=== PATIENT | female | born 1955 | race Caucasian/White ===

== ENCOUNTER 2020-01-08 11:48 | Day surgery (SDC) | payer MEDICARE ==
[~2020-01-08] VITALS: Ht 160 cm; Wt 63.2 kg
[~2020-01-08 11:48] MED LIST: CLON.1 PO; FISH OIL; FLAX SEED OIL; MAGNESIUM; OMEP20ER PO; RED RICE YEAST; VITAMIN C; VITAMIN D; WARF5 PO; WARF7.5 PO
--- NOTE | 2020-01-08 13:21 | NUR ---
01/08/20 1321 ADENIKE VENEGAS History, Chart, Medications and Allergies reviewed before start of procedure. 3-LEAD EKG REVIEWED WITH PHYSICIAN PRIOR TO START OF PROCEDURE. O2 VIA N/C INTACT THROUGHOUT SEDATION/PROCEDURE. MONITOR INTACT WITH CONTINUOUS PULSE OXIMETRY AND INTERMITTENT BP. PATIENT DETERMINED TO BE ASA APPROPRIATE FOR PROPOFOL SEDATION PRIOR TO START OF PROCEDURE BY DR. MARTINI.
--- NOTE | 2020-01-08 14:07 | NUR ---
WRITTEN AND VERBAL D/C INSTRUCTIONS GIVEN TO PT WITH STATED UNDERSTANDING.
== END 2020-01-08 22:49 | disposition home or self-care (01) ==
LOC: ORSCMMR 11:48 → ORD 13:15 → ORSCMMR 22:49
PROVIDERS: Internal Medicine Gastroenterology
PROC: 0DB98ZX Excision of Duodenum, Via Natural or Artificial Opening Endoscopic, Diagnostic (ICD-10-PCS; principal; 2020-01-08 13:15)
PROC: 0DB58ZX Excision of Esophagus, Via Natural or Artificial Opening Endoscopic, Diagnostic (ICD-10-PCS; principal; 2020-01-08 13:15)
PROC: 0DB68ZX Excision of Stomach, Via Natural or Artificial Opening Endoscopic, Diagnostic (ICD-10-PCS; principal; 2020-01-08 13:15)
DX: Z87.19 Personal history of other diseases of the digestive system (principal); K58.0 Irritable bowel syndrome with diarrhea; Z79.01 Long term (current) use of anticoagulants
CPT/HCPCS: J2704; J7120

== ENCOUNTER 2020-03-23 12:35 | Emergency (ER) | payer MEDICARE ==
[~2020-03-23] VITALS: Ht 160 cm; Wt 59.0 kg
== END 2020-03-23 13:37 | disposition home or self-care (01) ==
LOC: ER 12:35
DX: S01.81XD Laceration without foreign body of other part of head, subsequent encounter (principal); Z88.2 Allergy status to sulfonamides; Z88.8 Allergy status to other drugs, medicaments and biological substances; Z79.01 Long term (current) use of anticoagulants; Z79.899 Other long term (current) drug therapy; Z87.891 Personal history of nicotine dependence

== ENCOUNTER 2020-06-07 07:00 | Emergency (ER) | payer MEDICARE, OTHER ==
[~2020-06-07] VITALS: Ht 160 cm; Wt 63.5 kg
[2020-06-07 08:02] LABS: BASOPHILS ABSOLUTE AUTO 0.03 K/mm3 (0.00-0.23); BASOPHILS PERCENT AUTO 0 % (0-2); EOSINOPHILS ABSOLUTE AUTO 0.16 K/mm3 (0.00-0.68); EOSINOPHILS PERCENT AUTO 2 % (0-6); Hematocrit 27.7 % (33.0-51.0); Hemoglobin 8.7 g/dL (11.5-16.0); IMMATURE GRAN ABSOLUTE AUTO 0.04 K/mm3 (0.00-0.10); IMMATURE GRAN PERCENT AUTO 0 % (0-1); LYMPHOCYTES ABSOLUTE AUTO 1.32 K/mm3 (0.84-5.20); LYMPHOCYTES PERCENT AUTO 12 % (21-46); MONOCYTES ABSOLUTE AUTO 1.23 K/mm3 (0.16-1.47); MONOCYTES PERCENT AUTO 12 % (4-13); Mean Corpuscular HGB 29.3 pg (26.0-34.0); Mean Corpuscular HGB Conc 31.4 g/dL (31.5-36.5); Mean Corpuscular Volume 93 fL (80-100); Mean Platelet Volume 10.4 fL (9.1-12.4); NEUTROPHILS ABSOLUTE AUTO 7.85 K/mm3 (1.96-9.15); NEUTROPHILS PERCENT AUTO 74 % (41-73); Platelet Count 298 K/mm3 (150-400); RDW Coefficient Variation 12.6 % (11.7-14.2); RDW Standard Deviation 43.2 fL (35.1-46.3); Red Blood Cell Count 2.97 M/mm3 (3.80-5.20); White Blood Cell Count 10.63 K/mm3 (4.00-11.30)
[2020-06-07 08:14] LABS: International Normalized Ratio 3.58; Prothrombin Time Results 35.6 Sec (9.7-11.5)
[2020-06-07 08:25] LABS: Alanine Aminotransfer (ALT/SGP 90 U/L (12-78); Albumin/Globulin Ratio 0.9 (0.8-1.8); Alk Phos 160 U/L (50-136); Anion Gap 6 mmol/L (6-16); Aspartate Aminotrans (AST/SGOT 126 U/L (12-37); Bilirubin, Total 0.5 mg/dL (0.1-1.0); Blood Urea Nitrogen 24 mg/dL (8-24); Bun/Creatinine Ratio 31.3 (12.0-20.0); CO2, Blood 25 mmol/L (21-32); Calcium, Blood 8.5 mg/dL (8.5-10.1); Chloride, Blood 112 mmol/L (98-108); Creatinine, Blood 0.77 mg/dL (0.40-1.00); Globulin, Blood 3.5 g/dL (2.2-4.0); Glomerular Filtration Rate >60 (60-); Glucose, Blood 107 mg/dL (70-99); Potassium, Blood 3.7 mmol/L (3.5-5.5); Sodium, Blood 143 mmol/L (136-145); Total Protein, Blood 6.5 g/dL (6.4-8.2)
[2020-06-07 08:39] LABS: Source, Urine Voided
[2020-06-07 08:46] LABS: Bilirubin, Urine Neg (Neg); Blood, Urine 1+ (Neg); Glucose Qualitative, Urine Neg (Neg); Ketones, Urine Neg (Neg); Leukocyte Esterase, Urine Neg (Neg); Nitrite, Urine Neg (Neg); Protein, Urine Neg (Neg); Urobilinogen, Urine NORM (Normal)
[2020-06-07 08:58] LABS: Appearance, Urine Clear (Clear); Bacteria Not Seen /hpf; Color, Urine Yellow (P-Yellow); Red Blood Cells, Urine 0-2 /hpf (0-2); Squamous Epithelial Cells Not Seen /hpf (Few); White Blood Cells, Urine 0-2 /hpf (0-5)
[2020-06-07 09:54] LABS: Adenovirus Not Detected (NOT DETECT); Coronavirus 229E Not Detected (NOT DETECT); Coronavirus HKU1 Not Detected (NOT DETECT); Coronavirus NL63 Not Detected (NOT DETECT); Coronavirus OC43 Not Detected (NOT DETECT); Human Metapneumovirus Not Detected (NOT DETECT); Human Rhinovirus/Enterovirus Not Detected (NOT DETECT); Influenza A/2009-H1 Not Detected (NOT DETECT); Influenza A/H1 Not Detected (NOT DETECT); Influenza A/H3 Not Detected (NOT DETECT); Influenza B Not Detected (NOT DETECT); SARS-Cov-2 (COVID-19), BioFire Not Detected (NOT DETECT)
[2020-06-07 09:55] LABS: Bordetella pertussis Not Detected (NOT DETECT); Chlamydophila pneumoniae Not Detected (NOT DETECT); Mycoplasma pneumoniae Not Detected (NOT DETECT); Parainfluenza Virus 1 Not Detected (NOT DETECT); Parainfluenza Virus 2 Not Detected (NOT DETECT); Parainfluenza Virus 3 Not Detected (NOT DETECT); Parainfluenza Virus 4 Not Detected (NOT DETECT); Respiratory Syncytial Virus Not Detected (NOT DETECT)
== END 2020-06-07 10:32 | disposition short-term general hospital (02) ==
LOC: ER 07:00
PROVIDERS: Emergency Medicine
DX: D62 Acute posthemorrhagic anemia (principal); K92.2 Gastrointestinal hemorrhage, unspecified; D68.32 Hemorrhagic disorder due to extrinsic circulating anticoagulants; T45.515A Adverse effect of anticoagulants, initial encounter; Z88.2 Allergy status to sulfonamides; Z88.8 Allergy status to other drugs, medicaments and biological substances; Z79.01 Long term (current) use of anticoagulants; Z79.899 Other long term (current) drug therapy; Z87.891 Personal history of nicotine dependence; Z95.4 Presence of other heart-valve replacement
CPT/HCPCS: 0202U; 36415; 71045; 80053; 81001; 82272; 83880; 84484; 85025; 85610; 86850; 86900; 86901; 86923; 93005; 93010; 96374; 99285-25; C9113

== ENCOUNTER 2020-09-03 07:00 | Day surgery (SDC) | payer MEDICARE ==
[~2020-09-03] VITALS: Ht 160 cm; Wt 62.0 kg
[~2020-09-03 07:00] MED LIST changes: +FERSU300 PO; +METO25ER PO
--- NOTE | 2020-09-03 10:21 | NUR ---
DR CALDERA IN ROOM DISCUSSING PLAN OF CARE. PT IS MOVING NEXT WEEK TO [place], [place]. SHE HAS AN APPT SCHEDULED TO SEE A PUBLIC SERVICES LIB[employer]IAN . PT HAS BILATERAL RADIAL TR BANDS IN PLACE. NO BLEEDING OR HEMATOMA NOTED. VSS. DESAI. CALL LIGHT WITHIN REACH.
--- NOTE | 2020-09-03 10:45 | NUR ---
AIR DEFLATED FROM R RADIAL TR BAND. SLIGHT OOZING NOTED. 5CC OF AIR REINFLATED. NO FURTHER BLEEDING NOTED. VSS. NADN. L ARM REMAINS STABLE. VSS.
--- NOTE | 2020-09-03 12:01 | NUR ---
BOTH TR BAND DEFLATED. NO BLEEDING NOTED. VSS. NADN. PT REPORTS DENIES NEEDS. PT AMBULATES TO THE RESTROOM AND BACK WITHOUT DIFF. VSS
--- NOTE | 2020-09-03 12:35 | NUR ---
BOTH TR BANDS REMOVED AND DOT DRESSING PLACED. WITH SPLINTS IN PLACE. TOLERATES WELL. VSS. NADN.
--- NOTE | 2020-09-03 13:00 | NUR ---
PT DRESSES SELF WITH MINIMAL ASSISTANCE. VSS. NADN. PT RADIALS REMAIN CLEAR. PT IV DC'D. CATH INTACT. PRESSURE DSG APPLIED. PT VERBALIZES UNDERSTANDING WRITTEN AND VERBAL ORDERS. PT DC TO HOME VIA S/O BY [facility].
== END 2020-09-03 13:05 | disposition home or self-care (01) ==
LOC: MHTC 07:00
DX: I47.2 Ventricular tachycardia (principal); I47.1 Supraventricular tachycardia; R94.39 Abnormal result of other cardiovascular function study; R00.2 Palpitations; I34.0 Nonrheumatic mitral (valve) insufficiency; I20.8 Other forms of angina pectoris; I10 Essential (primary) hypertension; E78.5 Hyperlipidemia, unspecified; I49.1 Atrial premature depolarization; R61 Generalized hyperhidrosis; R79.89 Other specified abnormal findings of blood chemistry; M19.90 Unspecified osteoarthritis, unspecified site; Z79.01 Long term (current) use of anticoagulants; Z88.2 Allergy status to sulfonamides; Z87.891 Personal history of nicotine dependence
CPT/HCPCS: 76937; 85347; 93454; 99152; 99153; C1769; C1894; J1644; J2250; J3010; J7030; J7050; Q9967